=== PATIENT | male | born 1980 | race Caucasian/White ===

== ENCOUNTER 2017-07-04 12:58 | Emergency (ER) | payer BC ==
[2017-07-04 13:11] VITALS: BP 133/60
[2017-07-04] MEDS ORDERED: Famotidine TAB* 20 MG PO ONE (13:54)
[2017-07-04] MEDS ORDERED: diPHENhydraMINE PO* 50 MG PO ONE (13:54)
[2017-07-04] MEDS ORDERED: methylPREDNISolone 125 MG* 2 ML VIAL IM ONE (13:54)
--- NOTE | 2017-07-04 15:37 | UC ---
Skin Complaint HPI - HPI Summary HPI Summary: INSECT BITE ON LEFT FOREARM ONE HOUR [employer]. REDNESS ITCHINESS AND SWELLING DEVELOPED ON LEFT FOREARM. NO THROAT TIGHTNESS. NO SHORTNESS OF BREATH. NO LIP SWELLING. - History of Current Complaint Chief Complaint: UCSkin Time Seen by Provider: 07/04/17 13:47 Stated Complaint: INSECT BITE Hx Obtained From: Patient Onset/Duration: Sudden Onset, Lasting Hours, Still Present Skin Exposure Onset/Duration: Hours Ago Onset Severity: Mild Current Severity: Moderate Pain Intensity: 0 Pain Scale Used: 0-10 Numeric Location: Discrete Character: Swelling, Pruritus, Redness Aggravating: Touch Alleviating: Nothing Associated Signs & Symptoms: Positive: Rash. Negative: Vomiting, Numbness, Thirst, Weakness, Pallor, Difficulty Breathing, Fever, Chills, Cough, Wheezing, Chest Pain, Hoarseness, Throat Tightening, Drainage, Bruising, Tenderness, Red Streaks, Joint Swelling Related History: Insect Bite/Sting, Possible Reaction to: Insect - Allergy/Home Medications Allergies/Adverse Reactions: Allergies Allergy/AdvReac Type Severity Reaction Status Date / Time No Known Allergies Allergy Verified 07/04/17 13:12 Home Medications: Home Medications NK [No Home Medications Reported] 07/04/17 [History Confirmed 07/04/17] Review of Systems Constitutional: Negative Skin: Rash - LEFT ARM ERYTHEMA AND EDEMA Eyes: Negative ENT: Negative Respiratory: Negative Cardiovascular: Negative Gastrointestinal: Negative Genitourinary: Negative Motor: Negative Neurovascular: Negative Musculoskeletal: Negative Neurological: Negative Psychological: Negative All Other Systems Reviewed And Are Negative: Yes PMH/Surg Hx/FS Hx/Imm Hx Previously Healthy: Yes - Surgical History Surgical History: Yes Surgery Procedure, Year, and Place: fx fibula - Family History Known Family History: Negative: Respiratory Disease - Social History Occupation: Employed Full-time Lives: With Family Alcohol Use: Rare Substance Use Type: None Smoking Status (MU): Never Smoked Tobacco - Immunization History Most Recent Tetanus Shot: unknown Physical Exam Triage Information Reviewed: Yes Appearance: Well-Appearing, No Pain Distress, Well-Nourished Vital Signs: Initial Vital Signs Temp 99 F 07/04/17 13:02 Pulse 82 07/04/17 13:02 Resp 16 07/04/17 13:02 BP 133/60 07/04/17 13:02 Pulse Ox 97 07/04/17 13:02 Vital Signs Reviewed: Yes Eye Exam: Normal ENT Exam: Normal ENT: Positive: Normal ENT inspection, TMs normal Dental Exam: Normal Neck exam: Normal Neck: Positive: Supple, Nontender, No Lymphadenopathy Respiratory Exam: Normal Respiratory: Positive: Chest non-tender, Lungs clear, Normal breath sounds, No respiratory distress, No accessory muscle use Cardiovascular Exam: Normal Cardiovascular: Positive: RRR, No Murmur, Pulses Normal Abdominal Exam: Normal Musculoskeletal Exam: Normal Musculoskeletal: Positive: Strength Intact, ROM Intact, No Edema Neurological Exam: Normal Psychological Exam: Normal Skin: Positive: rashes - LEFT FOREARM ERYTHEMA EDEMA Course/Dx - Differential Diagnoses - Skin Complaint Differential Diagnoses: Abscess, Allergic Reaction, Anaphylaxis, Angioedema, Cellulitis - Diagnoses Provider Diagnoses: LEFT FOREARM INSECT STING; LOCAL ALLERGIC REACTION Discharge - Discharge Plan Condition: Stable Disposition: HOME Patient Education Materials: Insect Bite or Sting (ED) Referrals: [facility] [place]Outside] Non Staff,Doctor [Primary Care Provider] - Additional Instructions: PLEASE TAKE BENADRYL 50mg PO BID FOR FIVE DAYS ; ALSO TAKE PEPCID 40mg PO BID FOR FIVE DAYS. PLEASE ICE INJURY. TYLENOL AND IBUPROPHEN FOR PAIN
== END 2017-07-04 14:46 | disposition home or self-care (01) ==
LOC: UCCORT 12:58
DX: T63.441A Toxic effect of venom of bees, accidental (unintentional), initial encounter (principal); R60.0 Localized edema; Y92.9 Unspecified place or not applicable
CPT/HCPCS: 96372; 99212; A9270-GY; G0463; J2930